=== PATIENT | male | born 1930 | race Caucasian/White ===

== ENCOUNTER 2018-02-09 04:10 | Emergency (ER) | payer MEDICARE ==
[~2018-02-09] VITALS: Ht 172.7 cm; Wt 61.2 kg
[2018-02-09] MEDS ORDERED: NITROGLYCERIN OINT 1 GM PACKET TP ONE ×2 (04:30)
[2018-02-09] MEDS ORDERED: METOPROLOL TARTRATE 5 MG/5 ML VIAL IVP ONE ×2 (04:30)
[2018-02-09 04:34] VITALS: BP 111/56
--- NOTE | 2018-02-09 04:37 | NUR ---
MEDS ADMINISTERED, MONITOR SHOWS NSR AT 67, VSS.
[2018-02-09] MEDS ORDERED: CARV3.12 PO (04:44)
[2018-02-09] MEDS ORDERED: ACET-2154 PO (04:44)
[2018-02-09] MEDS ORDERED: PANT40TA2 PO (04:44)
[2018-02-09] MEDS ORDERED: ATOR20TA PO (04:44)
[2018-02-09] MEDS ORDERED: DRON400T PO (04:44)
[2018-02-09] MEDS ORDERED: ESCI10TA PO (04:44)
[2018-02-09] MEDS ORDERED: CYANOCOBALAMIN PO (04:44)
[2018-02-09] MEDS ORDERED: DUTA0.5C PO (04:44)
[2018-02-09] MEDS ORDERED: OMEGA PO (04:44)
[2018-02-09] MEDS ORDERED: FISH OIL 300 MG PO (04:44)
[2018-02-09] MEDS ORDERED: HYDR-4076 PO (04:44)
[2018-02-09 04:56] LABS: BASOPHILS % (AUTO) 0.5 % (0.0-2.0); EOSINOPHILS # (AUTO) 0.1 K/uL (0.0-0.7); EOSINOPHILS % (AUTO) 0.5 % (0.0-7.0); HEMATOCRIT 30.2 % (36.7-47.1); HEMOGLOBIN 10.3 g/dL (12.5-16.3); LYMPHOCYTES # (AUTO) 0.8 K/uL (20.0-40.0); MEAN CORPUSCULAR HEMOGLOBIN 31.1 uug (23.8-33.4); MEAN CORPUSCULAR HGB CONC 34 g/dL (32.5-36.3); MEAN CORPUSCULAR VOLUME 91.2 fL (73.0-96.2); MONOCYTES # (AUTO) 1.2 K/uL (2.0-10.0); MONOCYTES % (AUTO) 10.9 % (0.0-11.0); NEUTROPHILS # (AUTO) 8.8 K/uL (1.8-8.9); NEUTROPHILS % (AUTO) 81.1 % (38.5-71.5); PLATELET COUNT (AUTO) 268 K/uL (152-348); RED BLOOD CELL COUNT(AUTO) 3.32 MIL/uL (4.06-5.63); WHITE BLOOD COUNT (AUTO) 10.8 K/uL (3.6-10.2)
[2018-02-09 05:03] LABS: CARBON DIOXIDE 35 mmol/L (21-32); CHLORIDE 98 mmol/L (98-107); CREATININE 3.3 mg/dL (0.6-1.3); GLUCOSE 104 mg/dL (74-106); POTASSIUM 3.6 mmol/L (3.5-5.1); UREA NITROGEN, BLOOD 23 mg/dL (7-18)
[2018-02-09 05:19] LABS: ALANINE AMINOTRANSFERASE 13 U/L (16-63); ALKALINE PHOSPHATASE 101 U/L (50-136); ASPARTATE AMINOTRANSFERASE 15 U/L (15-37); BILIRUBIN,DIRECT 0.2 mg/dL (0.0-0.2); BILIRUBIN,TOTAL 0.7 mg/dL (0.2-1.0)
[2018-02-09 05:23] LABS: MAGNESIUM 1.8 mg/dL (1.8-2.4); PHOSPHOROUS 2.9 mg/dL (2.5-4.9)
[2018-02-09] MEDS ORDERED: ENOXAPARIN SODIUM 60 MG/0.6 ML DISP.SYRIN SQ ONE ×2 (05:30→05:31)
--- NOTE | 2018-02-09 05:33 | NUR ---
CALLED DR SUNSHINE GLOVER MARINE FIREMAN AT [phone], DR DREW SPOKE TO DATA CONTROL CLERK SUPERVISOR, I THEN CALLED DR ELOY DE LOS SANTOS AT [phone] AND LEFT A MESSAGE FOR THE MED DATA CONTROL CLERK SUPERVISOR.
--- NOTE | 2018-02-09 05:36 | NUR ---
DR COBB THE COAT PADDER INTERNEST SPOKE WITH DR DREW.
--- NOTE | 2018-02-09 05:42 | NUR ---
CALLED [facility] AND NO ANSWER, LEFT MESSAGE. PH#[phone].
--- NOTE | 2018-02-09 06:04 | NUR ---
CALLED [facility] [employer], SPOKE TO PRASHANT WHOM STATED TO FAX FACESHEET TO [phone], AND TO CALL DR HERNANDEZ TO HAVE HIM CALL HER IN REGARDS TO THE TRANSFER. CALLED AND LEFT MESSAGE TO [phone] HERNANDEZ TO CALL [facility], AND ATTEMPTED TO FAX FACESHEET AND WAS NOT RECEIVED AT [phone], WHIH I WILL ATTEMPT AGAIN.
--- NOTE | 2018-02-09 06:15 | NUR ---
FACE SHEET WAS SENT TO [facility] THE MANAGER [employer]. AT THIS TIME I'M AWAITING FOR CALL BACK IN REGARDS TO TRANSFER INFORMATION.
--- NOTE | 2018-02-09 06:16 | NUR ---
PT RESTING, MONITOR SHOWS NSR WITH OCCASIONAL PVC'S, BP STABLE AT 120/46, HR=99
--- NOTE | 2018-02-09 06:49 | NUR ---
CALLED [facility] SPOKE FISRT TO DONITA WHOM GAVE ME AN INITIAL ETA AT [phone], I ASK ED TO SPEAK WITH THE DISPATCHER AND SPOKE TO HUGO WHOM CONFIRMED THE ETA. I INFORMED HUGO THAT TRANSFERS ARE TO BE DONE IN LESS TIME, HE STATED 0745 WOULD BE THE BEST HE COULD DO.
--- NOTE | 2018-02-09 06:51 | NUR ---
CALLED [facility] [place] TO INFORM ETA OF [phone].
--- NOTE | 2018-02-09 07:20 | NUR ---
SBAR REPORT TO MAGALY RN, PT RESTING, MONITOR SHOWS, NSR WITH OCCASIONAL PVC'S.
== END 2018-02-09 08:14 | disposition short-term general hospital (02) ==
LOC: ER 04:17
DX: R00.2 Palpitations (principal); I48.91 Unspecified atrial fibrillation; J90 Pleural effusion, not elsewhere classified; I12.9 Hypertensive chronic kidney disease with stage 1 through stage 4 chronic kidney disease, or unspecified chronic kidney disease; N18.9 Chronic kidney disease, unspecified; K21.9 Gastro-esophageal reflux disease without esophagitis; Z79.899 Other long term (current) drug therapy; Z86.73 Personal history of transient ischemic attack (TIA), and cerebral infarction without residual deficits
CPT/HCPCS: 36415; 70030-TC; 71045; 83735; 84100; 85025; 85730; 93005; A4663; J1650; J3490